=== PATIENT | female | born 1995 | race Caucasian/White ===

== ENCOUNTER 2017-06-23 12:18 | Emergency (ER) | payer OTHER ==
[~2017-06-23] VITALS: Ht 165.1 cm; Wt 79.7 kg
[2017-06-23 12:23] VITALS: BP 140/89
[2017-06-23] MEDS ORDERED: ONDANSETRON ODT 4 MG PO ONE (13:30)
[2017-06-23] MEDS ORDERED: OXYcodone/APAP 5/325MG TABLET PO ONE (13:30)
[2017-06-23] MEDS ORDERED: OXYcodone/APAP 5/325MG TABLET ONE (14:39)
[2017-06-23] MEDS ORDERED: ONDANSETRON ODT 4 MG ONE (14:40)
== END 2017-06-23 15:02 | disposition home or self-care (01) ==
LOC: ED 14:55
DX: S06.0X0A Concussion without loss of consciousness, initial encounter (principal); S00.33XA Contusion of nose, initial encounter; W19.XXXA Unspecified fall, initial encounter; Y93.89 Activity, other specified; Y92.89 Other specified places as the place of occurrence of the external cause; Y99.9 Unspecified external cause status
CPT/HCPCS: 70450; 70486; 99284; Q0162